=== PATIENT | female | born 1970 | race Caucasian/White ===

== ENCOUNTER 2017-08-19 11:04 | Emergency (ER) | payer OTHER ==
[~2017-08-19] VITALS: Ht 172.7 cm; Wt 91.9 kg
[2017-08-19 11:16] VITALS: Ht 172.7 cm; Wt 91.9 kg
[2017-08-19 11:51] VITALS: O2SAT 97
[2017-08-19] MEDS ORDERED: ERGO500037 PO (11:52)
[2017-08-19] MEDS ORDERED: ATOR-22 PO (11:52)
[2017-08-19] MEDS ORDERED: NIFE60TA57 PO (11:52)
[2017-08-19] MEDS ORDERED: SODIUM CHLORIDE 0.9% 250ML 250 ML IV STA (12:05)
[2017-08-19] MEDS ORDERED: SODIUM CHLORIDE 0.9% 1000ML 1,000 ML IV STA (12:05)
[2017-08-19 12:25] LABS: BASO % 0.1 %; BASO ABS # 0.02 K/uL (0-0.2); COMPLETE YES; EOS % 0.4 %; IG% 0.7 %; LYMPH ABS # 1.89 K/uL (1.2-3.4); MEAN CELL VOLUME 92.1 fL (80-100); MEAN CORPUSCULAR HEMOGLOBIN 31.7 pg (25-34); MEAN CORPUSCULAR HGB CONC 34.4 g/dl (32-36); MEAN PLATELET VOLUME 9.1 fL (7.4-10.4); MONO % 4.9 %; NEUT % 80.9 %; PLATELET COUNT 323 K/uL (130-400); RED BLOOD COUNT 4.67 M/uL (4.2-5.4); WHITE BLOOD COUNT 14.57 K/uL (4.8-10.8)
[2017-08-19 12:44] LABS: BUN/CREATININE RATIO 25.7 (10-20); CALCIUM 9.5 mg/dl (8.5-10.1); CREATININE 0.85 mg/dl (0.60-1.20); POTASSIUM 3.8 mmol/L (3.5-5.1)
[2017-08-19] MEDS ORDERED: OPTIRAY 320 IV PRN (12:45)
[2017-08-19 12:49] LABS: URINE APPEARANCE CLEAR (CLEAR); URINE BILIRUBIN NEG (NEG); URINE COLOR YELLOW; URINE NITRITE NEG (NEG); URINE PH 6.5 (4.5-7.5); URINE SPECIFIC GRAVITY 1.016 (1.000-1.030); UROBILINOGEN NEG (NEG); ZZUR CULT IF INDIC CLEAN CATCH NO
[2017-08-19 12:53] LABS: MANUAL MICROSCOPIC REQUIRED? NO; REVIEW REQ? NO
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
[2017-08-19] MEDS ORDERED: KETOROLAC TROMETHAMINE 30 MG/ML VIAL IV STA (13:51)
[2017-08-19] MEDS ORDERED: CYCL5TAB PO (13:57)
[2017-08-19 14:11] VITALS: BP 166/112; PULSE 78; TEMP 36.8; O2SAT 96
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
[2017-08-19] MEDS ORDERED: FLEXERIL HOME PACK 10 MG VIAL PO ONE (14:45)
== END 2017-08-19 14:18 | disposition home or self-care (01) ==
LOC: EDBD 11:04 → C.EDC 11:07
DX: S16.1XXA Strain of muscle, fascia and tendon at neck level, initial encounter (principal); S20.20XA Contusion of thorax, unspecified, initial encounter; S80.10XA Contusion of unspecified lower leg, initial encounter; I10 Essential (primary) hypertension; V48.5XXA Car driver injured in noncollision transport accident in traffic accident, initial encounter; Y92.488 Other paved roadways as the place of occurrence of the external cause; F17.210 Nicotine dependence, cigarettes, uncomplicated; Z79.899 Other long term (current) drug therapy